=== PATIENT | female | born 1965 | race Caucasian/White ===

== ENCOUNTER → 2018-08-14 11:45 | Outpatient (CLI) | payer BC, SELFPAY ==
--- NOTE | 2018-08-14 11:54 | XR_ITS ---
EXAM: XR lumbar spine min 4V HISTORY: ITS.REASON: SI JOINT DISFUNCTION, ACUTE BILATERAL LOW BACK PAIN ORDERING PHYSICIAN: Nida Cuenca PATIENT AGE: 53 years COMPARISON: None FINDINGS: There is sacralization of L5. Normal alignment. No fracture or dislocation evident. There are facet arthritic changes at L4-L5 and L5-S1. The SI joints have an unremarkable appearance. The disc spaces are well-preserved. IMPRESSION: Facet arthritic changes at L4-5 and L5-S1
== END ==
PROVIDERS: PCP Nurse Practitioner Family; Visit Provider Nurse Practitioner Family
DX: M53.3 Sacrococcygeal disorders, not elsewhere classified (principal); M54.5 Low back pain
CPT/HCPCS: 72110

== ENCOUNTER → 2019-07-16 07:44 | Outpatient (CLI) | payer BC, SELFPAY ==
[2019-07-16 08:08] LABS: Blood Urea Nitrogen 15 mg/dL (7-18); Creatinine,Serum 0.68 mg/dL (0.55-1.02); Estimated Glomerular Filt Rate 90 ml/min (>60); GFR (African American) 108 ML/MIN (>60)
--- NOTE | 2019-07-16 08:30 | MR_ITS ---
PROCEDURE: MR HEAD/BRAIN WO/W CON CLINICAL INDICATION: DIZZINESS, UNSTEADINESS ON FEET The dizziness, unsteadiness, constant dizziness COMPARISON: No exams were available for comparison TECHNIQUE: Routine multiplanar multi echo sequences are performed without and with gadolinium enhancement. FINDINGS: There is a large right cerebellopontine angle mass. This measures 3.6 cm transverse, 3.4 cm AP, and 2.9 cm cephalad caudad. The mass is heterogeneously isointense to slightly hypointense on T1 and shows heterogeneous slight increased T2 signal. This is causing marked mass effect upon the midbrain and brainstem with shift of the lauren to the left by nearly 1.5 cm. This is causing narrowing of the 4th ventricle. This mass shows fairly intense heterogeneous contrast enhancement. There is intra canalicular extension with enhancement of the 7th and 8th nerve complex and mild bulbous enlargement of the 7th and 8th nerve. The mass extends to just slightly across midline at the level of the lauren but does not extend anteriorly around the basilar artery. The ventricular system is upper limits of normal. The mass does not demonstrate restricted diffusion. There is a small cystic component along the lower aspect anteriorly which measures 6 mm. The left CP angle has an unremarkable appearance. No other enhancing lesions are evident. No evidence of acute infarction. The pituitary, optic chiasm, and corpus callosum have an unremarkable appearance. No tonsillar herniation is evident. 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 Nida Cuenca the patient's primary care provider was notified of these results by telephone 07/16/2019 at 10:21 a.m. Dictated by: Michael Malik MD 07/16/2019 10:21 Electronically signed by Michael Malik MD in [place] 07/16/2019 10:21
--- NOTE | 2019-07-16 09:27 | HMH.ITSHM ---
Current Home Medications as stated by this patient Nereyda Nash or territory account representative. []VITAMIN D3 VITAMIN B12 VITAMIN A
== END ==
PROVIDERS: Family Medicine; Visit Provider Nurse Practitioner Family
DX: R42 Dizziness and giddiness (principal); R26.81 Unsteadiness on feet
CPT/HCPCS: 36415; 70553; 82565; 84520; A9576